=== PATIENT | female | born 1995 | race Two or more races ===

== ENCOUNTER 2021-11-14 07:19 | Inpatient (IN) ==
[2021-11-14] MEDS ORDERED: OXYTOCIN/LR 20 UNIT/1,000 ML BAG IV ONE (07:41)
[2021-11-14] MEDS ORDERED: TRANEXAMIC ACID 1,000 MG in SODIUM CHLORIDE 0.9% 100 ML IV PRN (07:41)
[2021-11-14] MEDS ORDERED: ONDANSETRON 4 MG/2 ML VIAL IV PRN (07:41)
[2021-11-14] MEDS ORDERED: CARBOPROST TROMETHAMINE 250 MCG/ML AMP IM PRN (07:41)
[2021-11-14] MEDS ORDERED: BUTORPHANOL 2 MG/ML VIAL IV PRN (07:41)
[2021-11-14] MEDS ORDERED: miSOPROStoL 200 MCG TABLET RECTAL PRN (07:41)
[2021-11-14] MEDS ORDERED: METHYLERGONOVINE 0.2 MG/1 ML AMP IM PRN (07:41)
[2021-11-14] MEDS ORDERED: OXYTOCIN/LR 20 UNIT/1,000 ML BAG IV SCH (08:00)
[2021-11-14 08:28] LABS: Basophils % 0.3 % (0.0-0.8); Eosinophils # 0.1 10*3/uL (0.0-0.87); Eosinophils % 0.9 % (0.00-10.9); Immature Granulocytes Absolute 0.08 #; Lymphocytes # 1.4 10*3/uL (1.4-4.0); Lymphocytes % 17.5 % (21.3-54.2); Mean Corpuscular HGB Conc 35.1 GM/DL (32-36); Mean Corpuscular Volume 88.1 FL (87-102); Mean Platelet Volume 10.2 FL (9.6-12.0); Monocytes # 0.5 10*3/uL (0.11-0.8); Monocytes % 6.3 % (1.7-12.7); Platelet Count 243 T/CUMM (130-400); Red Cell Distribution Width 13.6 % (9.3-17.3)
[2021-11-14] MEDS: LACTATED RINGERS 1,000 ML IV SCH ×2 (12:30→18:20)
[2021-11-14] MEDS ORDERED: LACTATED RINGERS 1,000 ML IV ONE (13:25)
[2021-11-14] MEDS ORDERED: FAMOTIDINE 20 MG/2 ML VIAL IV ONE (13:25)
[2021-11-14] MEDS ORDERED: CITRIC ACID/SODIUM CITRATE 30 ML UDCUP PO ONE (13:25)
[2021-11-14] MEDS ORDERED: ePHEDrine 50 MG/ML VIAL IV PRN (13:25)
[2021-11-14] MEDS: MEPERIDINE 50 MG/1 ML VIAL IV PRN ×2 (15:02→17:36)
[2021-11-14] MEDS ORDERED: NALOXONE 0.4 MG/ML VIAL IV PRN (16:36)
[2021-11-14] MEDS: fentaNYL 2 MCG/ROPIV 0.2% EPID 100 ML EPIDURAL SCH (18:41)
[2021-11-14 19:24] LABS: Glucose,Urine (UA) Negative (Negative); Ketones,Urine >160 mg/dL (Negative); Mucus,Urine Occasional /LPF (Occasional); Nitrite,Urine Negative (Negative); Protein,Urine Negative (Negative); RBC,Urine 6 /HPF (0-4); Squamous Epithelial Cell,Urine Occasional /HPF (0-10); Urine Appearance Clear (Clear); Urine Color Yellow (Yellow); Urine Specific Gravity 1.025 (1.001-1.035)
[2021-11-14 19:25] LABS: Bilirubin,Urine Negative (Negative); Blood, Urine Trace mg/dL (Negative); Urine Urobilinogen 0.2 eU/dL (<2.0)
[2021-11-15] MEDS: LACTATED RINGERS 1,000 ML IV SCH (00:22)
[2021-11-15] MEDS: fentaNYL 2 MCG/ROPIV 0.2% EPID 100 ML EPIDURAL SCH (04:41)
[2021-11-15] MEDS ORDERED: miSOPROStoL 200 MCG TABLET ONE (07:17)
[2021-11-15] MEDS ORDERED: METHYLERGONOVINE 0.2 MG/1 ML AMP ONE (07:18)
[2021-11-15] MEDS ORDERED: TRANEXAMIC ACID 1,000 MG/10 ML VIAL ONE (07:18)
[2021-11-15] MEDS ORDERED: CARBOPROST TROMETHAMINE 250 MCG/ML AMP IM ONE (07:18)
[2021-11-15] MEDS ORDERED: ACETAMINOPHEN 325 MG TABLET PO PRN (07:49)
[2021-11-15] MEDS ORDERED: BENZOCAINE 20%/MENTHOL 0.5% SPRAY 56 GM CAN TOP PRN (07:49)
[2021-11-15] MEDS ORDERED: WITCH HAZEL PADS 100/JAR TOP PRN (07:49)
[2021-11-15] MEDS ORDERED: DIPH/TET/ACEL PERT BOOSTER VACCINE 0.5 ML VIAL IM ONE (07:49)
[2021-11-15] MEDS ORDERED: BISACODYL 10 MG SUPP RECTAL PRN (07:49)
[2021-11-15] MEDS ORDERED: MEASLES/MUMPS/RUBELLA VACCINE 0.5 ML VIAL SUBCUT ONE (07:49)
[2021-11-15] MEDS ORDERED: RHO(D) IMMUNE GLOBULIN 300 MCG SYRINGE IM ONE (07:49)
[2021-11-15] MEDS ORDERED: ONDANSETRON 4 MG/2 ML VIAL IV PRN (07:49)
[2021-11-15] MEDS ORDERED: HYDROCORTISONE 2.5% RECTAL CREAM 30 GM TUBE TOP PRN (07:49)
[2021-11-15] MEDS ORDERED: OXYTOCIN/LR 20 UNIT/1,000 ML BAG IV ONE (07:49)
[2021-11-15] MEDS ORDERED: LANOLIN 50% CREAM 0.3 OZ TUBE TOP PRN (07:49)
[2021-11-15 08:03] LABS: Cord Venous Blood HCO3 20.7 MMOL/L; Cord Venous Blood PCO2 40.6 MMHG
[2021-11-15] MEDS: IBUPROFEN 800 MG TABLET PO PRN ×2 (10:39→21:18)
[2021-11-15] MEDS: oxyCODONE/ACETAMINOPHEN 5-325 MG TABLET PO PRN (16:52)
[2021-11-15] MEDS ORDERED: valACYclovir 500 MG TABLET PO SCH (21:00)
[2021-11-15] MEDS: DOCUSATE SODIUM 100 MG CAPSULE PO SCH (21:15)
[2021-11-16] MEDS: oxyCODONE/ACETAMINOPHEN 5-325 MG TABLET PO PRN ×2 (02:13→19:34)
[2021-11-16 04:35] LABS: Basophils % 0.3 % (0.0-0.8); Eosinophils # 0.1 10*3/uL (0.0-0.87); Eosinophils % 0.9 % (0.00-10.9); Hematocrit 32.5 VOL% (35.7-47.0); Hemoglobin 11.1 GM/DL (12.0-16.0); Immature Granulocytes % 0.7 %; Immature Granulocytes Absolute 0.08 #; Lymphocytes % 17.6 % (21.3-54.2); Mean Corpuscular HGB Conc 34.2 GM/DL (32-36); Mean Corpuscular Volume 89.8 FL (87-102); Mean Platelet Volume 10.3 FL (9.6-12.0); Monocytes # 0.7 10*3/uL (0.11-0.8); Monocytes % 6.3 % (1.7-12.7); Neutrophils % 74.2 % (38.7-73.9); Platelet Count 208 T/CUMM (130-400); Red Blood Count 3.62 MC/CUMM (3.8-5.5); Red Cell Distribution Width 13.6 % (9.3-17.3); White Blood Count 11.6 T/CUMM (4-12)
[2021-11-16] MEDS: DOCUSATE SODIUM 100 MG CAPSULE PO SCH ×2 (09:33→19:33)
[2021-11-16] MEDS: valACYclovir 500 MG TABLET PO SCH (19:33)
[2021-11-17] MEDS: DOCUSATE SODIUM 100 MG CAPSULE PO SCH ×2 (00:34→08:55)
[2021-11-17] MEDS: valACYclovir 500 MG TABLET PO SCH ×2 (00:35→08:55)
[2021-11-17] MEDS: oxyCODONE/ACETAMINOPHEN 5-325 MG TABLET PO PRN (08:59)
[2021-11-17] MEDS: IBUPROFEN 800 MG TABLET PO PRN (08:59)
[2021-11-17 20:14] VITALS: BP 134/86
== END 2021-11-17 13:05 | disposition home or self-care (01) | DRG 807 ==
LOC: N.LD 07:19 → N.OB 11-15 10:21
PROVIDERS: ADMIT Obstetrics & Gynecology; ATTEND Obstetrics & Gynecology